=== PATIENT | female | born 1990 | race Caucasian/White ===

== ENCOUNTER 2024-01-02 06:23 | Day surgery (SDC) | payer MEDICAID ==
[~2024-01-02] VITALS: Ht 162.6 cm; Wt 76.2 kg
[2024-01-02] MEDS ORDERED: MIDAZOLAM 2 MG/2 ML VIAL ONE (07:36)
[2024-01-02] MEDS ORDERED: fentaNYL citrate 0.05 MG/ML VIAL ONE (07:36)
[2024-01-02] MEDS: MIDAZOLAM 2 MG/2 ML VIAL IVP ONE (07:43)
== END 2024-01-02 08:57 | disposition home or self-care (01) ==
LOC: MDS 06:23 → MMU 06:24 → MDS 08:57
PROVIDERS: ATTEND Internal Medicine Gastroenterology
DX: R13.10 Dysphagia, unspecified (principal); K21.00 Gastro-esophageal reflux disease with esophagitis, without bleeding; K44.9 Diaphragmatic hernia without obstruction or gangrene; K22.4 Dyskinesia of esophagus; F17.210 Nicotine dependence, cigarettes, uncomplicated; Z79.899 Other long term (current) drug therapy
CPT/HCPCS: 36415; 43239; 86677; J2250; J3010